=== PATIENT | male | born 1995 | race Caucasian/White ===

== ENCOUNTER 2020-10-30 11:52 | Emergency (ER) | payer OTHER ==
[~2020-10-30 11:52] MED LIST: IBUPROFEN600 MG PO; ZOFRAN ODT 4 MG4 MG SL
[2020-10-30] MEDS ORDERED: CLEOCIN HCL300 MG PO (12:21)
[2020-10-30] MEDS ORDERED: NAPROXEN500 MG PO (12:21)
== END 2020-10-30 12:54 | disposition home or self-care (01) ==
LOC: ER1 11:52
DX: K05.219 Aggressive periodontitis, localized, unspecified severity (principal)
CPT/HCPCS: 96372; 96374; 99282; J1885

== ENCOUNTER 2020-10-31 08:42 | Emergency (ER) | payer OTHER ==
[~2020-10-31 08:42] MED LIST changes: +CLEOCIN HCL300 MG PO; +NAPROXEN500 MG PO
== END 2020-10-31 09:17 | disposition home or self-care (01) ==
LOC: ER1 08:42
DX: K04.7 Periapical abscess without sinus (principal); K02.9 Dental caries, unspecified; Z90.89 Acquired absence of other organs
CPT/HCPCS: 99282

== ENCOUNTER 2021-01-07 16:01 | Emergency (ER) | payer OTHER | END 2021-01-07 17:04 | disposition left against medical advice (07) | LOC: ER1 16:01 | DX: Z53.21 Procedure and treatment not carried out due to patient leaving prior to being seen by health care provider (principal); Z20.822 Contact with and (suspected) exposure to COVID-19 | CPT/HCPCS: 0240U ==

== ENCOUNTER 2021-01-31 07:32 | Emergency (ER) | payer OTHER | END 2021-01-31 09:00 | disposition home or self-care (01) | LOC: ER1 07:32 | DX: U07.1 COVID-19 (principal); Z90.89 Acquired absence of other organs | CPT/HCPCS: 99283; U0002 ==

== ENCOUNTER 2022-01-15 20:22 | Emergency (ER) | payer OTHER | END 2022-01-15 23:00 | disposition home or self-care (01) | LOC: ER1 20:22 | DX: U07.1 COVID-19 (principal); J06.9 Acute upper respiratory infection, unspecified | CPT/HCPCS: 0240U; 99283 ==